=== PATIENT | male | born 1945 | race Caucasian/White ===

== ENCOUNTER 2024-08-17 23:03 | Emergency (ER) | payer MEDICARE ==
[~2024-08-17] VITALS: Ht 170.2 cm; Wt 84.0 kg
[2024-08-17 23:05] VITALS: O2SAT 96
[2024-08-17 23:30] VITALS: TEMP 36.8
[2024-08-18 00:03] LABS: BASOPHILS % 1.3 % (0.0-2.0); HEMATOCRIT. 41.1 % (42.0-52.0); HEMOGLOBIN. 13.7 g/dL (14.0-18.0); LYMPHOCYTES % 26.2 % (20.0-50.0); MEAN CORPUSCULAR HEMOGLOBIN 31.3 pg (28.0-32.0); MEAN CORPUSCULAR HGB CONC 33.4 g/dL (31.0-37.0); MEAN CORPUSCULAR VOLUME 93.8 fL (80.0-94.0); NEUTROPHILS % 60.5 % (40.0-76.0); PLATELET 224 x1000/uL (130-400); RED BLOOD CELL COUNT 4.39 mill/uL (4.7-6.1); WHITE BLOOD COUNT 6.7 x1000/uL (4.5-11.0)
[2024-08-18 00:09] LABS: CHLORIDE 109 mEq/L (98-107); POTASSIUM 4.1 mEq/L (3.5-5.1); SODIUM 143 mEq/L (136-145)
[2024-08-18 00:10] LABS: CALCIUM 9.6 mg/dL (8.7-10.4); CARBON DIOXIDE 24 mEq/L (21-32)
[2024-08-18 00:15] LABS: CREATININE 1.1 mg/dL (0.6-1.3); GLUCOSE 253 mg/dL (70-105); UREA NITROGEN BLOOD 11 mg/dL (9-23)
[2024-08-18 00:16] LABS: TROPONIN I HIGH SENSITIVITY 28 ng/L (3.0-53)
[2024-08-18 00:24] LABS: ETHANOL BLOOD 304 mg/dL (<10)
[2024-08-18 01:45] VITALS: TEMP 97.7
[2024-08-18] MEDS: ACETAMINOPHEN 325MG TABLET PO NR (01:45)
[2024-08-18] MEDS: TETANUS, DIPHTHERIA, PERTUSSIS VAC/PF 0.5ML (>10YR OLD) IM ONE (01:46)
[2024-08-18] MEDS: AMOXICILLIN/POTASSIUM CLAVULANATE 875/125MG TAB PO ONE (02:20)
[2024-08-18] MEDS: LIDOCAINE HCL 1% 20ML VIAL INFIL ONE (02:45)
[2024-08-18] MEDS ORDERED: AMOX1TAB16 MT (03:59)
[2024-08-18] MEDS ORDERED: IBUP-2029 MT (03:59)
[2024-08-18 04:15] VITALS: BP 140/66; PULSE 67; RESP 17; O2SAT 96
== END 2024-08-18 04:33 | disposition home or self-care (01) ==
LOC: ER 23:03
DX: S02.2XXA Fracture of nasal bones, initial encounter for closed fracture (principal); S01.21XA Laceration without foreign body of nose, initial encounter; F10.129 Alcohol abuse with intoxication, unspecified; E11.65 Type 2 diabetes mellitus with hyperglycemia; I11.0 Hypertensive heart disease with heart failure; I50.9 Heart failure, unspecified; I45.10 Unspecified right bundle-branch block; W19.XXXA Unspecified fall, initial encounter; Y93.89 Activity, other specified; Y92.89 Other specified places as the place of occurrence of the external cause; Y99.8 Other external cause status; Y90.8 Blood alcohol level of 240 mg/100 ml or more
CPT/HCPCS: 80048; 80320; 83880; 85025; 84484; 36415; 71045; 72170; 70450; 70486; 72125; 93005; 12011; 99285; 90715; 90471; J3490; G0480